=== PATIENT | female | born 1970 | race Hispanic/Latino ===

== ENCOUNTER 2018-01-26 10:40 | Emergency (ER) | payer BC, OTHER ==
[~2018-01-26] VITALS: Ht 154.9 cm; Wt 60.8 kg
[~2018-01-26 10:40] MED LIST: BIRTH CONTROL PILL PO; DICYCLOMINE HCL10 MG PO; OMEPRAZOLE40 MG PO
--- OUTSIDE RECORDS SUMMARY | 2018-01-26 10:42 | XMS REPORT ---
Author Author Admin, [place] Organization [facility] Address Unknown Phone Unavailable Allergies, Adverse Reactions, Alerts Allergy Name Reaction Description Start Date Severity Status Provider No Known Allergies Ila Nieves FURNITURE REMOVALIST Conditions or Problems Problem Name Problem Code Onset Date Status Entry Date Provider Comment Standard Description Annotate A/C Technician well woman exam V72.31 Active Shell Villalobos MD Routine gynecological examination Menorrhagia, perimenopausal 626.8 Active Shell Villalobos MD Other disorders of menstruation and other abnormal bleeding from female genital tract Medication List Medication Instructions Start Date Stop Date Generic Name NDC Status Provider Patient Instruction LOESTRIN FE 1.5/30 1.5-30 MG-MCG ORAL TABLET 1po Every daily NORETHIN NATANAEL-ETH ESTRAD-FE 59475156961 Active Shell Villalobos MD Active LOESTRIN 1/20 (21) 1-20 MG-MCG ORAL TABLET 1 By Mouth Every daily LOESTRIN 1/20 (21) 1-20 MG-MCG ORAL TABLET 8623408 NORETHINDRONE ACET-ETHINYL EST Inactive LOESTRIN 1/20 (21) 1-20 MG-MCG ORAL TABLET 1 By Mouth Every daily NORETHINDRONE ACET-ETHINYL EST 59316008324 No Longer Active Shell Villalobos MD Active Vital Signs Date Name Value Unit Range Description blood pressure, diastolic 71 mm[Hg] BP mayers blood pressure, systolic 122 mm[Hg] BP sys height E&M 62 [in_us] Bdy height pulse rate E&M 76 /min Heart rate respiratory rate E&M 17 /min Resp rate temperature E&M 98.4 [degF] Body temperature weight E&M 132.38 [lb_av] Weight Measured Diagnostic Results Date Name Value Unit Range Description Lab Report: CBC With Differential/Platelet, Comp. Metabolic Panel (14), ... - Urinalysis epithelial cells, urine 0-10 /[LPF] 0 - 10 pH, urine, semiquantitative 6.5 5.0-7.5 Lab Report: CBC With Differential/Platelet, Comp. Metabolic Panel (14), ... - Hematology lymphocyte count, blood, automated 3.1 X10E3/UL 10*3/mm3 0.7- 3.1 Lab Report: CBC With Differential/Platelet, Comp. Metabolic Panel (14), ... - Urinalysis bilirubin, urine Negative Negative Lab Report: CBC With Differential/Platelet, Comp. Metabolic Panel (14), ... - Chemistry urea nitrogen, blood 11 mg/dL 6-24 creatinine, serum 0.56 mg/dL 0.57-1.00 chloride, serum 101 mmol/L 96-106 Lab Report: CBC With Differential/Platelet, Comp. Metabolic Panel (14), ... - Hematology mean corpuscular volume, RBC 94 fL 79-97 Lab Report: CBC With Differential/Platelet, Comp. Metabolic Panel (14), ... - Chemistry triglyceride, serum, fasting 258 mg/dL 0-149 Lab Report: CBC With Differential/Platelet, Comp. Metabolic Panel (14), ... - Hematology erythrocyte (RBC) count 4.35 X10E6/UL 10*6/mm3 3.77-5.28 Lab Report: CBC With Differential/Platelet, Comp. Metabolic Panel (14), ... - Chemistry Estimated Glomerular Filtration Rate (calc) 111 mL/min/1.73m2 > 59 Lab Report: CBC With Differential/Platelet, Comp. Metabolic Panel (14), ... - Urinalysis appearance, urine Clear Clear Lab Report: CBC With Differential/Platelet, Comp. Metabolic Panel (14), ... - Hematology platelet count 307 X10E3/UL 10*3/mm3 635-104 8358/10/05 red blood cell distribution width 13.4 % 12.3-15.4 Lab Report: CBC With Differential/Platelet, Comp. Metabolic Panel (14), ... - Chemistry protein, total, serum 7.2 g/dL 6.0-8.5 HDL cholesterol, serum 50 mg/dL >39 Lab Report: CBC With Differential/Platelet, Comp. Metabolic Panel (14), ... - Urinalysis mucus on urinalysis Present Not Estab. Lab Report: CBC With Differential/Platelet, Comp. Metabolic Panel (14), ... - Chemistry specific gravity, body fluid 1.022 1.005-1.030 Lab Report: CBC With Differential/Platelet, Comp. Metabolic Panel (14), ... - Urinalysis glucose, urine, semiquantitative Negative Negative Lab Report: CBC With Differential/Platelet, Comp. Metabolic Panel (14), ... - Chemistry albumin/globulin ratio, serum 1.3 1.2-2.2 Lab Report: CBC With Differential/Platelet, Comp. Metabolic Panel (14), ... - Hematology eosinophils as percent of blood leukocytes 2 % Not Estab. Lab Report: CBC With Differential/Platelet, Comp. Metabolic Panel (14), ... - Chemistry Absolute Neutrophils 5.4 X10E3/UL 10*3/uL 1.4-7.0 Lab Report: CBC With Differential/Platelet, Comp. Metabolic Panel (14), ... - Hematology basophil count, absolute 0.0 x10E3/uL 0.0-0.2 Lab Report: CBC With Differential/Platelet, Comp. Metabolic Panel (14), ... - Chemistry alanine aminotransferase (SGPT), serum 16 U/L 0-32 LDL cholesterol, serum 131 mg/dL 0-99 Office Visit: Annual / Family Planning Female Rm#2 - Urinalysis nitrite, urine, semiquantitative negative Lab Report: CBC With Differential/Platelet, Comp. Metabolic Panel (14), ... - Hematology monocytes as percent of blood leukocytes 7 % Not Estab. Lab Report: CBC With Differential/Platelet, Comp. Metabolic Panel (14), ... - Chemistry cholesterol, serum 233 mg/dL 100-199 Lab Report: CBC With Differential/Platelet, Comp. Metabolic Panel (14), ... - Basic Occult Blood, urine 2+ Negative Lab Report: CBC With Differential/Platelet, Comp. Metabolic Panel (14), ... - Hematology mean corpuscular hemoglobin concentration, RBC 32.2 G/DL % 31.5- 35.7 Lab Report: CBC With Differential/Platelet, Comp. Metabolic Panel (14), ... - Urinalysis leukocyte esterase, urine, by dipstick Negative Negative Lab Report: CBC With Differential/Platelet, Comp. Metabolic Panel (14), ... - Hematology hemoglobin, blood 13.1 g/dL 11.1-15.9 Lab Report: CBC With Differential/Platelet, Comp. Metabolic Panel (14), ... - Urinalysis urinalysis, microscopic examination See below: Lab Report: CBC With Differential/Platelet, Comp. Metabolic Panel (14), ... - Hematology leukocyte count, blood 9.3 X10E3/UL 10*3/mm3 3.4-10.8 Lab Report: CBC With Differential/Platelet, Comp. Metabolic Panel (14), ... - Urinalysis protein, urine, semiquantitative (dipstick) Negative Negative/ Trace Lab Report: CBC With Differential/Platelet, Comp. Metabolic Panel (14), ... - Hematology hematocrit, blood 40.7 % 34.0-46.6 Lab Report: CBC With Differential/Platelet, Comp. Metabolic Panel (14), ... - Chemistry globulin, serum 3.1 1.5-4.5 Lab Report: CBC With Differential/Platelet, Comp. Metabolic Panel (14), ... - Urinalysis bacteria, urine microscopy Few None seen/Few Lab Report: CBC With Differential/Platelet, Comp. Metabolic Panel (14), ... - Chemistry thyroid stimulating hormone, serum 1.250 u[iU]/mL 0.450-4.500 albumin, serum 4.1 g/dL 3.5-5.5 very low density lipoproteins 52 mg/dL 5-40 Lab Report: CBC With Differential/Platelet, Comp. Metabolic Panel (14), ... - Urinalysis urobilinogen, urine, semiquantitative (dipstick) 0.2 0.2-1.0 Lab Report: CBC With Differential/Platelet, Comp. Metabolic Panel (14), ... - Chemistry calcium, serum 9.4 mg/dL 8.7-10.2 Lab Report: CBC With Differential/Platelet, Comp. Metabolic Panel (14), ... - Hematology basophils as percent of blood leukocytes 0 % Not Estab. monocyte count, blood, automated 0.6 X10E3/UL 10*3/uL 0.1-0.9 Lab Report: CBC With Differential/Platelet, Comp. Metabolic Panel (14), ... - Chemistry immature granulocytes, percentage of total cells, blood 1 % Not Estab. urea nitrogen/creatinine ratio, serum 20 9-23 Lab Report: CBC With Differential/Platelet, Comp. Metabolic Panel (14), ... - Genetics/fertility eGFR if 128 mL/min/1.73m2 >59 Lab Report: CBC With Differential/Platelet, Comp. Metabolic Panel (14), ... - Urinalysis WBC urine on microscopy 0-5 /hpf {Cells}/[HPF] 0 - 5 Lab Report: CBC With Differential/Platelet, Comp. Metabolic Panel (14), ... - Hematology lymphocytes as percent of blood leukocytes 33 % Not Estab. Lab Report: CBC With Differential/Platelet, Comp. Metabolic Panel (14), ... - Chemistry carbon dioxide, venous blood 23 mmol/L 18-29 RBC, Urine 3-10 /hpf /[HPF] 0 - 2 sodium, serum 137 mmol/L 772-394 2198/10/05 alkaline phosphatase, serum 50 U/L 39-117 Lab Report: CBC With Differential/Platelet, Comp. Metabolic Panel (14), ... - Urinalysis ketones, urine, by test strip Negative Negative Lab Report: CBC With Differential/Platelet, Comp. Metabolic Panel (14), ... - Hematology Eosinophil Absolute Count 0.1 X10E3/UL 10*3/uL 0.0-0.4 Office Visit: Annual / Family Planning Female Rm#2 - Urinalysis specific gravity, urine 1.005 Lab Report: CBC With Differential/Platelet, Comp. Metabolic Panel (14), ... - Hematology mean corpuscular hemoglobin, RBC 30.1 pg 26.6-33.0 Lab Report: CBC With Differential/Platelet, Comp. Metabolic Panel (14), ... - Chemistry bilirubin, serum, total 0.3 mg/dL 0.0-1.2 Lab Report: CBC With Differential/Platelet, Comp. Metabolic Panel (14), ... - Hematology neutrophils as percent of blood leukocytes 57 % Not Estab. Lab Report: CBC With Differential/Platelet, Comp. Metabolic Panel (14), ... - Chemistry nitrate, urine Negative Negative Office Visit: Annual / Family Planning Female Rm#2 - Urinalysis blood in urine (hemoglobin) by dipstick 1+ Lab Report: CBC With Differential/Platelet, Comp. Metabolic Panel (14), ... - Chemistry blood glucose, random 122 mg/dL 65-99 potassium, serum 5.0 mmol/L 3.5-5.2 aspartate aminotransferase (SGOT), serum 15 U/L 0-40 Lab Report: CBC With Differential/Platelet, Comp. Metabolic Panel (14), ... - Urinalysis urine color Yellow Yellow Procedures Code Procedure Name Date Entry Date Standard Description CPT-10465 Urinalysis - Dip only - In House 14:29:12 CDT CPT-78443 New Patient Well Exam (40 - 64 Yrs) - [id number] 14:29:12 CDT
[2018-01-26] MEDS ORDERED: SIMVASTATIN10 MG PO (11:03)
[2018-01-26] MEDS ORDERED: DONNATAL/LIDOCAINE/MAALOX 30 ML SUSP PO ONE ×2 (11:15→11:30)
[2018-01-26 11:27] LABS: BASOPHILS % 0.2 % (0.0-1.0); EOSINOPHILS # (AUTO) 0.1 (0.0-0.4); EOSINOPHILS % 0.4 % (0.0-6.0); HEMATOCRIT 37.1 % (34.2-44.1); HEMOGLOBIN 12.9 g/dL (12.0-16.0); LYMPHOCYTES # (AUTO) 2.7 (1.0-3.2); MEAN CORPUSCULAR HGB CONC 34.8 g/dL (31-35); MEAN CORPUSCULAR VOLUME 89.2 fL (81-99); MONOCYTES # (AUTO) 0.7 (0.2-0.8); MONOCYTES % 5.6 % (4.4-11.3); NEUTROPHILS # (AUTO) 8.7 (2.1-6.9); NEUTROPHILS % 71.5 % (38.7-80.0); PLATELET COUNT 297 x10e3/uL (140-360); RED BLOOD COUNT 4.16 x10e6/uL (3.6-5.1); RED CELL DISTRIBUTION WIDTH 13.1 % (11.7-14.4)
[2018-01-26 11:29] LABS: CLARITY,URINE CLEAR (CLEAR); COLOR,URINE COLORLESS (YELLOW)
[2018-01-26 11:30] LABS: BILIRUBIN,URINE NEGATIVE (NEGATIVE); KETONES,URINE NEGATIVE (NEGATIVE); LEUKOCYTE ESTERASE ,URINE NEGATIVE (NEGATIVE); NITRITE,URINE NEGATIVE (NEGATIVE); PROTEIN,URINE DIPSTICK NEGATIVE (NEGATIVE); URINE UROBILINOGEN 0.2 mg/dL (0.2 - 1)
[2018-01-26 11:31] LABS: PREGNANCY TEST, URINE NEGATIVE (NEGATIVE)
[2018-01-26 11:42] LABS: BACTERIA,URINE RARE /HPF; EPITHELIAL CELLS,URINE RARE /LPF
[2018-01-26 11:47] LABS: ALANINE AMINOTRANSFERASE 15 IU/L (0-55); ALBUMIN 3.8 g/dL (3.5-5.0); ALKALINE PHOSPHATASE 39 IU/L (40-150); ANION GAP 14.7 mmol/L (8-16); BLOOD UREA NITROGEN 5 mg/dL (7-26); BUN/CREATININE RATIO 7 (6-25); CALCIUM 9.7 mg/dL (8.4-10.2); CARBON DIOXIDE 20 mmol/L (22-29); CHLORIDE 107 mmol/L (98-107); CREATINE KINASE 50 IU/L (29-168); CREATININE, SERUM 0.68 mg/dL (0.57-1.11); EST GLOMERULAR FILTRATION RATE > 60 ML/MIN (60-); GLUCOSE 157 mg/dL (74-118); LIPASE 17 U/L (8-78); POTASSIUM 3.7 mmol/L (3.5-5.1); SODIUM 138 mmol/L (136-145)
--- NOTE | 2018-01-26 12:02 | Diagnostic Imaging Report ---
PROCEDURE: A single AP view of the chest. COMPARISON: None. INDICATIONS: EPIGASTRIC PAIN FINDINGS: Lines/tubes: None. Lungs: The lungs are well inflated and clear. There is no evidence of pneumonia or pulmonary edema. Pleura: There is no pleural effusion or pneumothorax. Heart and mediastinum: The heart and the mediastinum are unremarkable. Mild atherosclerotic calcifications in the aorta. Bones: No acute bony abnormality. IMPRESSION: No acute cardiopulmonary disease. Dictated by: Agustin Hammond M.D. on 01/26/2018 at 12:05 Electronically approved by: Agustin Hammond M.D. on 01/26/2018 at 12:05
[2018-01-26 13:46] VITALS: BP 121/91
== END 2018-01-26 13:48 | disposition home or self-care (01) ==
LOC: ER 10:40
DX: R10.13 Epigastric pain (principal); K29.00 Acute gastritis without bleeding; E78.5 Hyperlipidemia, unspecified
CPT/HCPCS: 36415; 71045; 80053; 81001; 81025; 82550; 82553; 83690; 84484; 85025; 93005; 99284

== ENCOUNTER → 2018-03-13 | Day surgery (SDC) | payer OTHER ==
[2018-03-12 17:34] LABS: ANION GAP 12.9 mmol/L (8-16); BLOOD UREA NITROGEN 14 mg/dL (7-26); BUN/CREATININE RATIO 19 (6-25); CALCIUM 9.5 mg/dL (8.4-10.2); CARBON DIOXIDE 22 mmol/L (22-29); CHLORIDE 106 mmol/L (98-107); CREATININE, SERUM 0.74 mg/dL (0.57-1.11); EST GLOMERULAR FILTRATION RATE > 60 ML/MIN (60-); GLUCOSE 108 mg/dL (74-118); POTASSIUM 3.9 mmol/L (3.5-5.1); SODIUM 137 mmol/L (136-145)
[~2018-03-13] MED LIST changes: +CEFTRIAXONE SOD 1 GM VIAL ONE; +DEXAMETHASONE SOD PHOS INJ 4 MG/ML VIAL ONE; +FENTANYL CITRATE/PF 100MCG/2 ML INJ ONE; +IOPAMIDOL 300MG/ML 50ML INFUS..BTL IV ONE; +LIDOCAINE HCL 2% LOCAL INJ 5 ML SDV VIAL INJ ONE; +METFORMIN HCL500 MG PO; +MIDAZOLAM HCL 2 MG/2 ML VIAL ONE; +ONDANSETRON HCL INJ 2 MG/ML VIAL ONE; +PROPOFOL IV EMULSION 10 MG/ML 20 ML VIAL ONE; +SEVOFLURANE INHAL SOLN 250 ML PEN BTL ONE; +SIMVASTATIN10 MG PO
--- NOTE | 2018-03-13 13:14 | Operative Report ---
DATE OF PROCEDURE: March 13, 2018 PREOPERATIVE DIAGNOSES: 1. Multiple chronic urinary tract infections. 2. Clinical signs and symptoms of interstitial cystitis. POSTOPERATIVE DIAGNOSES: 1. Multiple chronic urinary tract infections. 2. Clinical signs and symptoms of interstitial cystitis. OPERATIONS PERFORMED: 1. Cystourethroscopy with hydrodistention (entirely separate procedure for clinical signs and symptoms of interstitial cystitis). 2. Cystourethroscopy with left ureteral catheterization and left retrograde pyelogram (separate procedure for multiple chronic urinary tract infections). 3. Cystourethroscopy with right ureteral catheterization and right retrograde pyelogram (separate procedure for multiple chronic urinary tract infections). 4. Supervision of fluoroscopy. 5. Interpretation of retrograde pyelography. ANESTHESIA: General. ESTIMATED BLOOD LOSS: Minimal. COMPLICATIONS: None. INDICATIONS FOR PROCEDURE: Ms. Kate is a very pleasant 47-year-old female patient with a history of multiple chronic urinary tract infections, repeated microscopic hematuria and clinical symptoms of interstitial cystitis without hematuria. She and I had a long discussion in regard to the alternatives, the risks and benefits including doing nothing, cystoscopy, IVP, hydrodistention, retrograde pyelograms or renal ultrasound due to the nephrotoxic risk of dye as well as the need for hydrodistention to evaluate this complex case of interstitial cystitis. The patient elected to proceed. PROCEDURE IN DETAIL: After informed consent was obtained, the patient was taken to the operative suite. She was placed supine on the operating table and underwent general anesthesia by the anesthesia service. She was then placed in the dorsal lithotomy position and sterilely prepped and draped in the standard fashion for cystoscopy. A 22.5-Cameroonian cystoscope was inserted per urethra, and a normal urethra was noted. Panendoscopy of the bladder revealed no tumors, no stones. Both ureteral orifices were in their normal anatomical location and position and were seen to efflux clear urine. A hydrodistention was performed and revealed a capacity of 1000 mL, no glomerulations, no Hunner's ulcers. Bilateral retrograde pyelograms were performed, which were normal. The bladder was drained, and the patient was awakened from anesthesia and transported to the recovery room in excellent condition. SUPERVISION OF FLUOROSCOPY AND INTERPRETATION OF RETROGRADE PYELOGRAPHY: I was present throughout the entire procedure, and I supervised the fluoroscopy. There was no radiologist present. Attention was turned toward the right and left ureteral orifices, which were catheterized with an 8-Cameroonian cone-tipped catheter. In a retrograde fashion, contrast was injected, revealing delicate ureters, delicate caliceal systems, no evidence of filling defects, no evidence of hydronephrosis. IMPRESSION: Normal retrograde pyelograms. Job#: [id number] EV CC: DR. ALCANTARA
== END | disposition home or self-care (01) ==
LOC: OR 09:49
PROVIDERS: ATTEND Urology
DX: N39.0 Urinary tract infection, site not specified (principal); R35.1 Nocturia; E11.9 Type 2 diabetes mellitus without complications; I10 Essential (primary) hypertension; Z01.810 Encounter for preprocedural cardiovascular examination; Z01.812 Encounter for preprocedural laboratory examination; Z79.84 Long term (current) use of oral hypoglycemic drugs
CPT/HCPCS: 36415 ×2; 52005; 74420; 80048; 81025; 82948; 93005; C1758; J0696; J1100; J2001; J2250; J2405; Q9967